=== PATIENT | male | born 1995 | race Caucasian/White ===

== ENCOUNTER 2021-08-16 15:00 | Emergency (ER) | payer MEDICAID, OTHER ==
[~2021-08-16] VITALS: Ht 188 cm; Wt 86.4 kg
[~2021-08-16 15:00] MED LIST: ONDA4TAB6 PO
[2021-08-16] MEDS ORDERED: metoclopramide 5 mg/ml inj IV ONE (15:15)
[2021-08-16] MEDS ORDERED: magnesium 2GM in 50ml NS 50 ML IV ONE (15:15)
[2021-08-16] MEDS ORDERED: ketorolac trometh. 30mg/ml inj. IV ONE (15:15)
[2021-08-16] MEDS ORDERED: dexamethasone sod phosphate 10mg/ml inj IV STA (15:15)
[2021-08-16] MEDS ORDERED: LORazepam 2 mg/ml vial IV ONE (15:15)
[2021-08-16] MEDS ORDERED: normal saline 1000ML IV soln IVB ONE (15:15)
--- NOTE | 2021-08-16 18:18 | NUR ---
Assumed care of patient, no report. [id number]. Awaiting discharge after meds.
--- NOTE | 2021-08-16 18:36 | NUR ---
Received report from Valentin CASTILLO. d/c after mag.
[2021-08-16 19:04] VITALS: BP 137/70
== END 2021-08-16 19:06 | disposition home or self-care (01) ==
LOC: ER 15:00
DX: G43.909 Migraine, unspecified, not intractable, without status migrainosus (principal); R07.89 Other chest pain; R11.2 Nausea with vomiting, unspecified; Z79.899 Other long term (current) drug therapy
CPT/HCPCS: 93005; 96365; 96375; 99284; J1100; J1885; J2060; J2765; J3475; J7030